=== PATIENT | female | born 1995 | race Caucasian/White ===

== ENCOUNTER 2018-03-23 12:20 | Emergency (ER) | payer MEDICAID, OTHER ==
[2018-03-23 12:32] VITALS: BP 120/79; PULSE 59; RESP 16; TEMP 97.9; O2SAT 98
--- NOTE | 2018-03-23 13:17 | C.PDOC ---
History Of Present Illness 22 yo female come in for evaluation of pruritic rash over B/L arms, legs, lower back gradually developed for past 3 days. Pt admits, " had new coffee, not sure if its allergy". Pt denies previous hx of allergy to food or medication. Otherwise, pt denies fever, chills, throat tightness or swelling, drooling, dysphagia, dyspnea, SOB, wheezing, abd. pain, N/V/D, denies recent illness or known sick contact. Ambulate to Ed for evaluation, not in resp. distress. Time Seen by Provider: 03/23/18 12:22 Chief Complaint (Nursing): Abnormal Skin Integrity History Per: Patient Past Medical History Reviewed: Historical Data, Nursing Documentation, Vital Signs Vital Signs: Last Vital Signs Temp 97.9 F 03/23/18 12:31 Pulse 59 L 03/23/18 12:31 Resp 16 03/23/18 12:31 BP 120/79 03/23/18 12:31 Pulse Ox 98 03/23/18 12:31 - Medical History PMH: Asthma Surgical History: No Surg Hx Family History: States: Unknown Family Hx - Social History Hx Tobacco Use: No Hx Alcohol Use: No Hx Substance Use: No - Immunization History Hx Tetanus Toxoid Vaccination: No Hx Influenza Vaccination: No Hx Pneumococcal Vaccination: No Review Of Systems Except As Marked, All Systems Reviewed And Found Negative. Constitutional: Negative for: Fever, Chills ENT: Negative for: Ear Discharge, Nose Discharge, Mouth Swelling, Throat Pain, Throat Swelling Cardiovascular: Negative for: Chest Pain Respiratory: Negative for: Cough, Shortness of Breath, Wheezing Gastrointestinal: Negative for: Nausea, Vomiting, Abdominal Pain Musculoskeletal: Negative for: Neck Pain Skin: Positive for: Rash Neurological: Negative for: Weakness, Numbness Physical Exam - Physical Exam Appears: Well, Non-toxic, No Acute Distress Skin: Normal Color, Warm, Rash ((+) urticaria rash to B/L upper arm, B/L legs and lower back. No cellulitis.) Head: Normacephalic Eye(s): bilateral: PERRL Ear(s): Bilateral: Normal Nose: No Flaring, No Discharge Oral Mucosa: Moist, No Drooling Tongue: No Swelling Lips: No Swelling Throat: No Drooling, Other (uvula midline, no edema.) Neck: Trachea Midline, Supple Cardiovascular: Rhythm Regular, No Murmur Respiratory: No Decreased Breath Sounds, No Accessory Muscle Use, No Stridor, No Wheezing Gastrointestinal/Abdominal: Soft, No Tenderness, No Distention, No Guarding, No Rebound Extremity: Normal ROM, No Swelling Neurological/Psych: Oriented x3, Normal Speech ED Course And Treatment O2 Sat by Pulse Oximetry: 98 Pulse Ox Interpretation: Normal Progress Note: On re-eval, pt is afebrile, hemodynamicaly stable. Non-toxic. PulseOx 98% RA. ENT:no acute findings. uvula midline, no edmea. neck: Supple, (-) JVD. Lungs: CTA B/L, BS equal B/L. CVS: (+)S1S2, reg. Abd: benign. Neurologicaly intact. Pt has clinical findings c/w urticaria rash. Pt advised. ref. to F/u with PMD, Tobacco Flavorer in2 -3 days for re-evaluation. return if any new changes. Disposition Counseled Patient/Family Regarding: Diagnosis, Need For Followup, Rx Given - Disposition Referrals: [facility] [Outside] Disposition: HOME/ ROUTINE Disposition Time: 13:15 Condition: STABLE Additional Instructions: Take medication as prescribed Encourage fluids Follow up with PMD, Tobacco Flavorer in 2-3 days for re-evaluation. return to ED if any worsening or new changes. Prescriptions: DiphenhydrAMINE [Benadryl] 25 mg PO BID #10 cap Famotidine [Pepcid] 20 mg PO BID #10 tab Prednisone [Deltasone] 40 mg PO DAILY #6 tablet Instructions: Richard (SHARLENE) - Clinical Impression Clinical Impression: Urticaria
== END 2018-03-23 13:31 | disposition home or self-care (01) ==
LOC: C.ER 12:20
DX: L50.9 Urticaria, unspecified (principal)